=== PATIENT | female | born 1980 | race Two or more races ===

== ENCOUNTER 2021-05-06 10:15 | Emergency (ER) | payer MEDICAID, OTHER ==
[~2021-05-06] VITALS: Ht 172.7 cm; Wt 84.4 kg
[2021-05-06 10:35] LABS: Urine Bacteria FEW /hpf (None Seen); Urine Blood 3+ /uL (Negative); Urine Hyaline Cast FEW /lpf (0 - 2); Urine Mucus FEW (None Seen); Urine Specific Gravity 1.026 (1.001-1.035); Urine WBC 14 /hpf (0 - 5)
[2021-05-06 12:24] VITALS: BP 132/95
[2021-05-06] MEDS ORDERED: ONDANSETRON ODT 4 MG TAB PO ONE (13:00)
== END 2021-05-06 13:00 | disposition home or self-care (01) ==
LOC: ER 10:15
DX: K52.9 Noninfective gastroenteritis and colitis, unspecified (principal); N39.0 Urinary tract infection, site not specified; Z20.822 Contact with and (suspected) exposure to COVID-19
CPT/HCPCS: 36415; 81001; 81025; 87426; 99283; Q0162

== ENCOUNTER 2023-05-30 12:23 | Emergency (ER) | payer MEDICAID ==
[~2023-05-30] VITALS: Ht 172.7 cm; Wt 97.2 kg
[2023-05-30 13:00] LABS: Basophils # (auto) 0 10 ^3/uL (0-0.2); Eosinophils # (auto) 0.2 10 ^3/uL (0-0.8); Neutrophils % (auto) 47.8 % (37.0-80.0)
[2023-05-30 13:02] LABS: Basophils % (auto) 0.1 % (0.0-2.0); Eosinophils % (auto) 1.7 % (0.0-7.0); Hematocrit 35.6 % (36.0-46.0); Hemoglobin 11.3 g/dL (12.2-16.2); Lymphocytes # (auto) 4.7 10 ^3/uL (0.4-5.4); Lymphocytes % (auto) 42.4 % (10.0-50.0); Mean Corpuscular Hemoglobin 25.4 pg (28.0-32.0); Mean Corpuscular Hgb Conc. 31.7 g/dL (32.0-36.0); Mean Corpuscular Volume 80.2 fL (80.0-100.0); Monocytes # (auto) 0.9 10 ^3/uL (0-1.3); Neutrophils # (auto) 5.3 10 ^3/uL (1.6-8.6); Nucleated Red Blood Cells % 0.2 %; Red Blood Cells 4.44 10^6/uL (4.0-5.20); Red Cell Distribution Width 15.4 % (11.8-14.3)
[2023-05-30 13:18] LABS: Alanine Aminotransferase 121 U/L (7-40); Albumin 4.1 g/dL (3.2-4.8); Alkaline Phosphatase 60 U/L (46-116); Anion Gap 5.6 (5-15); Aspartate Aminotransferase 100 U/L (13-40); BUN/Creatinine Ratio 14.5 (10.0-20.0); Bilirubin, Total 0.3 mg/dL (0.2-1.0); Blood Urea Nitrogen 12 mg/dL (9-23); Calcium 10.6 mg/dL (8.5-10.1); Carbon Dioxide 25.4 mmol/L (20-30); Chloride 104 mmol/L (98-107); Glucose 80 mg/dL (74-106); Potassium 4.1 mmol/L (3.5-5.1); Sodium 135 mmol/L (136-145); Total Protein 6.9 g/dL (5.7-8.2)
[2023-05-30] MEDS ORDERED: ASPirin 81 mg TAB PO ONE (13:30)
[2023-05-30 13:39] VITALS: BP 142/82; RESP 18; TEMP 97.8; O2SAT 95
[2023-05-30 14:05] LABS: Urine Bacteria NONE SEEN /hpf (None Seen); Urine Blood Negative /uL (Negative); Urine Clarity HAZY (Clear); Urine Color Colorless (Yellow); Urine Protein, UAD Negative (Negative); Urine Specific Gravity 1.008 (1.001-1.035); Urine Urobilinogen Normal (Negative); Urine WBC 1 /hpf (0 - 5)
[2023-05-30 15:23] VITALS: PULSE 72
[2023-05-30] MEDS ORDERED: IOHEXOL 350 MG/ML 100ML IJ ONE (15:33)
== END 2023-05-30 17:40 | disposition home or self-care (01) ==
LOC: ER 12:23
DX: R07.89 Other chest pain (principal); I10 Essential (primary) hypertension; J45.909 Unspecified asthma, uncomplicated; E78.5 Hyperlipidemia, unspecified
CPT/HCPCS: 36415; 71046; 71275; 80053; 81001; 84484; 85025; 85379; 93005; 99285; Q9967